=== PATIENT | female | born 1990 | race Caucasian/White ===

== ENCOUNTER 2020-10-25 09:06 | Outpatient (REF) | payer OTHER, SELFPAY ==
[2020-10-25 09:43] LABS: COVID-19 Test Negative (Negative)
== END 2020-10-25 09:07 | disposition home or self-care (01) ==
LOC: HO.EMPCOV 09:06
PROVIDERS: Visit Provider Internal Medicine
DX: Z20.828 Contact with and (suspected) exposure to other viral communicable diseases (principal)
CPT/HCPCS: 87635; C9803

== ENCOUNTER 2020-11-23 12:17 | Outpatient (REF) | payer OTHER, SELFPAY ==
[2020-11-27 08:54] LABS: SARS-COV-2 PCR UMBRL NEGATIVE
== END 2020-11-23 12:18 | disposition home or self-care (01) ==
LOC: HO.LAB 12:17
PROVIDERS: Visit Provider Internal Medicine
DX: Z20.822 Contact with and (suspected) exposure to COVID-19 (principal)
CPT/HCPCS: C9803; U0003

== ENCOUNTER 2021-01-07 08:32 | Outpatient (REF) | payer OTHER, SELFPAY ==
[2021-01-07 08:52] LABS: COVID-19 Test Negative (Negative)
== END 2021-01-07 08:33 | disposition home or self-care (01) ==
LOC: HO.LAB 08:32
PROVIDERS: Visit Provider Internal Medicine
DX: Z20.822 Contact with and (suspected) exposure to COVID-19 (principal)
CPT/HCPCS: 36415; 87635; C9803

== ENCOUNTER 2021-10-01 10:10 | Outpatient (REF) | payer OTHER, SELFPAY ==
[2021-10-01 10:39] LABS: Binax Internal Control QC Valid; Binax Lot number: 1911; Binax Now Covid-19 Ag Negative (Negative)
== END 2021-10-01 10:11 | disposition home or self-care (01) ==
LOC: HO.LAB 10:10
PROVIDERS: Physician Assistant Medical; Visit Provider Internal Medicine
DX: Z20.822 Contact with and (suspected) exposure to COVID-19 (principal)
CPT/HCPCS: 36415

== ENCOUNTER → 2022-08-14 13:17 | Outpatient (RCR) | payer OTHER, SELFPAY ==
[2020-11-11 10:00] LABS: SARS-COV-2 PCR UMBRL NEGATIVE
[2020-12-09 10:13] LABS: SARS-COV-2 PCR UMBRL NEGATIVE
[2020-12-23 12:02] LABS: SARS-COV-2 PCR UMBRL NEGATIVE
[2020-12-28 08:25] LABS: SARS-COV-2 PCR UMBRL NEGATIVE
[2021-01-11 09:02] LABS: SARS-COV-2 PCR UMBRL NEGATIVE
[2021-01-21 08:10] LABS: SARS-COV-2 PCR UMBRL NEGATIVE
[2021-02-11 12:00] LABS: COVID-19 Test Negative (Negative); IDNOW Serial# 55D5AD1C
[2021-03-04 09:10] LABS: COVID-19 Test Negative (Negative)
== END | disposition home or self-care (01) ==
LOC: HO.EMPCOV 11-08 13:22
PROVIDERS: Visit Provider Internal Medicine
DX: Z20.828 Contact with and (suspected) exposure to other viral communicable diseases (principal)
CPT/HCPCS: 36415; 87635; C9803; U0003; U0005

== ENCOUNTER 2023-11-15 10:17 | Emergency (ER) | payer OTHER, SELFPAY ==
--- NOTE | ~2023-11-15 | XR_ITS ---
EXAMINATION:XR ankle LT min 3V VIEWS ACQUIRED: Total of 5 views, frontal and oblique ankle, frontal oblique and lateral left foot. CLINICAL INFORMATION: Reason for Exam s/p fall COMPARISON: None available at the time of this dictation. FINDINGS: Comminuted displaced intra-articular fracture of the base of the proximal phalanx fifth toe, surrounding soft tissue swelling, fracture extend into the metatarsophalangeal joint. There are no other fractures.. Intertarsal, tarsometatarsal, metatarsophalangeal and interphalangeal joints are intact. Ankle mortise is preserved. Talar dome is intact. Medial and lateral malleoli are normal. XR/XR ankle LT min 3V IMPRESSION: 1. Comminuted displaced intra-articular fracture of the base of the proximal phalanx fifth toe. 2. Soft tissue swelling. 3. No other fractures.
--- NOTE | ~2023-11-15 | XR_ITS ---
EXAMINATION:X-ray ankle/foot left VIEWS ACQUIRED: Total of 5 views, frontal and oblique ankle, frontal oblique and lateral left foot. CLINICAL INFORMATION: Reason for Exam s/p fall COMPARISON: None available at the time of this dictation. FINDINGS: Comminuted displaced intra-articular fracture of the base of the proximal phalanx fifth toe, surrounding soft tissue swelling, fracture extend into the metatarsophalangeal joint. There are no other fractures.. Intertarsal, tarsometatarsal, metatarsophalangeal and interphalangeal joints are intact. Ankle mortise is preserved. Talar dome is intact. Medial and lateral malleoli are normal. XR/XR foot LT min 3V IMPRESSION: 1. Comminuted displaced intra-articular fracture of the base of the proximal phalanx fifth toe. 2. Soft tissue swelling. 3. No other fractures.
[2023-11-15 10:23] VITALS: BP 142/79; PULSE 111; RESP 16; TEMP 36.5; O2SAT 97; BMI 31.3
--- NOTE | 2023-11-15 10:28 | ED.LOWEXIN ---
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 Reports slipping down the stairs when her left 4th and 5th toe became stuck on the stairs, going different ways . Unable to bear weight on the left foot or ambulate after fall secondary to pain. Reports taking 1000 mg Tylenol PASTER OPERATOR. Denies numbness/tingling/weakness of the LLE. Denies ankle or foot pain. Denies head strike or LOC. Not on AC. Related Data Previous Rx's Medication Instructions Recorded naproxen 500 mg tablet 500 mg PO Q8-12H PRN pain (scale 11/15/23 score 4-6) #20 tabs Allergies Allergy/AdvReac Type Severity Reaction Status Date / Time No Known Allergies Allergy Unverified 07/12/20 18:07 Review of Systems Review of Systems: Constitutional: No fever, chills, fatigue, night sweats, weight changes ENT/Mouth: No ear pain, hearing loss, nasal congestion, sinus pain, rhinorrhea, sore throat Eyes: No eye pain, swelling, redness, vision changes, discharge Cardio: No chest pain, palpitations, MEDINA, orthopnea, peripheral edema Pulm: No SOB, cough, sputum, wheezing, dyspnea, hemoptysis GI: No nausea, vomiting, hematemesis, abdominal pain, diarrhea, constipation, hematochezia, melena : No irregular bleeding, dysuria, frequency, urgency, hesitancy, hematuria, flank pain, urinary flow changes, urinary incontinence or retention MSK: No back pain, neck pain, joint pain, myalgias, +left 4th and 5th toe pain Skin: No lesions, rashes Neuro: No weakness, numbness, paresthesias, LOC, dizziness, headache All other systems reviewed and are negative. [facility] Past Medical History Attestation statement: The following information was validated with the patient. Source: old records reviewed and nursing notes reviewed Onset Date is defined in the Problem List Problems that require an onset date and time if occurred within 24 hrs of arrival to the ED Aortic Dissection and Rupture; Neurologic impairment; Cardiopulmonary Arrest; Endotracheal Intubation; Insertion or Replacement of Mechanical Circulatory Assist Device Social History Social History Advance Directives: No Advance Directives Information Provided: No Physical Exam Vital Signs: Vital Signs: Last Vital Signs Temp 97.7 F 11/15/23 10:23 Pulse 111 H 11/15/23 10:23 Resp 16 11/15/23 10:23 BP 142/79 H 11/15/23 10:23 Pulse Ox 97 11/15/23 10:23 O2 Del Method Room Air 11/15/23 10:23 BMI result Body Mass Index 31.3 Const: General: cooperative, healthy appearing, comfortable and no acute distress Orientation/consciousness: patient oriented x3 Limitations: no limitations HEENT: Head: Yes normal to inspection, Yes No palpable skull fracture present, Yes normocephalic and Yes atraumatic Eyes: General: appearance normal, both eyes and all related structures Conjunctivae: conjunctivae normal Sclerae: sclerae normal Pupils: Equal, round and reactive pupils present Neck: Neck: Yes normal visual inspection and Yes full ROM Resp: Effort & Inspection: normal respiratory effort and symmetric chest movement Auscultation: clear to auscultation bilaterally Cardio: Rate: regular rate Rhythm: regular rhythm Back/Spine/Pelvis: Other: No midline spinous tenderness. No paraspinal muscle tenderness. No step off deformity. Neuro: Other: Strength 5/5 intact throughout.? No saddle anesthesia.?Sensation intact to light touch.?Neurovascular intact distally.? General: patient oriented x3 and Unable to assess gait Cranial nerves: Yes Equal, round and reactive pupils present Gait exam (Neuro): Unable to assess gait Extrem: Other: + ecchymosis noted to the lateral aspect of the left foot with edema noted to the base of the 4th and 5th DIPs. No obvious deformity. No tenting. No open wound. Limited ROM to 4th and 5th DIP and PIP secondary to pain. No ttp of the lateral or medial malleloli. full rom to left ankle. Unable to examine gait. Presents in wheelchair. 2+ dp/pt pulses. Course Course Course Narrative: 1220-- Xrays of left foot/ankle show a comminuted displaced intra-articular fracture of the base of the proximal phalanx of the fifth toe along with soft tissue swelling. No other acute fractures or dislocations. On my review of the films, I do not feel as though this can be reduced in ED as it likely will not stay reduced. Will provide patient with post-op shoe and crutches and follow up with ortho this week. Patient has remained stable throughout ED visit today. Discussed strict return precautions. All questions answered at this time. Patient is agreeable with disposition and stable for discharge. 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 Patient initially hypertensive and tachycardic likely secondary to pain. Vitals otherwise wnl. Patient is nontoxic appearing and in NAD. On physical exam, there is ecchymosis noted to the lateral aspect of the left foot with edema noted to the base of the 4th and 5th DIPs. No obvious deformity. No tenting. No open wound. Limited ROM to 4th and 5th DIP and PIP secondary to pain. No ttp of the lateral or medial malleloli. Unable to examine gait. Presents in wheelchair. 2+ dp/pt pulses. Clinical concern for fracture, dislocation. Unlikely neurovascular compromise, compartment syndrome, open fracture, osteo. Plan for xrays and re-evaluation. Differential Diagnosis Differential Diagnoses: The differential diagnosis associated with the presentation includes as above. Admission/Observation Not indicated. Independent Interpretation I performed an independent interpretation of an: Plain X-Ray Interpretation: I have personally reviewed x-ray of left foot/ankle and agree with radiologist's interpretation. Radiology Impression Discussion of test interpretation with radiology: I have reviewed the radiologist's reading. Radiologist Impression: XR sarabjit/anklet LT min 3V IMPRESSION: 1. Comminuted displaced intra-articular fracture of the base of the proximal phalanx fifth toe. 2. Soft tissue swelling. 3. No other fractures. Independent Historian Clinical information obtained from an independent historian. History obtained from or confirmed by: Spouse () Prescription Management I considered prescription management with: Pain Medication Social Determinants Patient?s care significantly limited by Social Determinants of Health including: Other Social Determinant of Health Procedures Orthopedic Splinting/Casting Injury #1: Side: left Lower Extremity Injury Location: foot and toe Lower Extremity Immobilizer: post-op shoe Other Orthopedic Equipment: crutches Discharge Plan Discharge Clinical Impression: Closed fracture of phalanx of fifth toe Patient Disposition: Home, Self-Care Instructions: Crutch Instructions (ED), Toe Fracture (ED), Foot Fracture in Adults (ED), Post Surgical Shoe (ED) Additional Instructions: The xrays of your left foot show a comminuted and displaced fracture of your left fifth toe. You were provided with a post-op shoe today to help with stabilization of the toe. You were also provided with crutches as you are not to bear any weight on the left foot. You have been provided with referral to ortho surgery. YOU NEED TO CALL THEM TO MAKE AN APPOINTMENT. THEY WILL NOT CALL YOU. This may require surgical correction. Naproxen is in anti-inflammatory that has been sent to your pharmacy. Take this as needed for pain/ swelling. Ice the toe for 20 minutes at a time to help swelling. Rest the left foot and elevate to help with swelling. If symptoms persist or worse or you develop numbness/tingling to the left foot, return to the ED. In the case of emergency, call 911. Prescriptions: New naproxen 500 mg tablet 500 mg PO Q8-12H PRN (Reason: pain (scale score 4-6)) Qty: 20 0RF [place] [facility] [place]Provider Group] - 3 days (Comminuted displaced intra-articular fracture of the base of the proximal phalanx fifth toe.) Stand Alone Forms: Work/School Release
== END 2023-11-15 12:59 | disposition home or self-care (01) ==
PROVIDERS: Emergency Provider Emergency Medicine; PCP Pediatrics
DX: S92.512A Displaced fracture of proximal phalanx of left lesser toe(s), initial encounter for closed fracture (principal); M25.572 Pain in left ankle and joints of left foot; R00.0 Tachycardia, unspecified; M79.672 Pain in left foot; W10.9XXA Fall (on) (from) unspecified stairs and steps, initial encounter; Y93.9 Activity, unspecified; Y92.9 Unspecified place or not applicable; Y99.8 Other external cause status
CPT/HCPCS: 29515; 73610; 73630; 99281; 99283

== ENCOUNTER 2023-11-16 15:31 | Outpatient (AMB) | payer OTHER, SELFPAY ==
--- NOTE | 2023-11-16 15:32 | A.OFFVIS_ITS ---
Intake Vital Signs 11/16/23 15:33 Height 5 ft 8 in Weight 206 lb BMI 31.3 Intake Visit Reasons: FC-Closed fracture of phalanx of left fifth toe Intake Note: Marly perez 33 year old female presents today for an ER follow up of left 5th metatarsal fx, DOI 11/15/23. Patient reports that she fell down the stairs, she presented to [facility] ED where xrays were taken and placed in a post op shoe. Currently her pain level is 4 out of 10. States pain is worse with weight bear. Denies numbness or tingling. Allergies No Known Allergies Allergy (Unverified 11/16/23 15:34) Medication List - Last Reconciled 11/16/23 by Kenroy Lowery PA-C naproxen 500 mg PO BID 30 days HPI FC-Closed fracture of phalanx of left fifth toe HPI Details 33-year-old female who presents to the [facility] today for an ER follow-up of left 5th toe injury s/p fall down the stairs, 11/15/23. She was seen at ED where x-rays were performed and she was placed in a post-op shoe. She currently states she has pain in her small toe which is aggravated with weight bearing. She rates the pain as 4 on the scale of 0-10. She denies any numbness or tingling. [facility] Social History (Updated 11/16/23 @ 15:36 by FINA Richards) Patient Tobacco Use Status: Never used Tobacco Current occupational status: employed Current occupation: [employer] [place] Review of Systems Const All systems reviewed & are unremarkable except as noted in HPI and below Physical Exam Vital Signs: BMI result Body Mass Index 31.3 Extrem Other: Left foot: Skin intact. There is some bruising of the lateral edge of the left foot. There is tenderness distal end of the small toe. Sensation intact. EHL intact. No pain along the mediolateral malleolus. Neurovascularly intact. Office Procedures Fracture Care Fracture Billing Code: Fracture Billing Code Results Reviewed Results Reviewed: xrays of the left foot obtained in the ED on 11/15/23 show non displaced fracture through the base of the proximal phalanx Assessment & Plan Assessment & Plan (1) Closed fracture of phalanx of fifth toe: Code(s): S92.503A - Displaced unspecified fracture of unspecified lesser toe(s), initial encounter for closed fracture Plan She was fit for a short boot weight bearing as tolerated. She will wear this with ambulation and can remove the boot for rest, hygiene, elevation, and icing. A prescription of naproxen was also sent to her pharmacy to take for the next 2 weeks for her swelling. I encouraged her to try transitioning to a regular street shoe when her swelling is resolved and increase activity as tolerated. If she has any discomfort, I would like to see her back in 4 weeks with new x-rays, sooner if needed. Medications: New naproxen 500 mg PO BID 30 days 60 tabs 3RF S93.409A - Sprain of unspecified ligament of unspecified ankle, initial encounter Patient Instructions: Scribed for Kenroy Lowery PA-C, by Vinicius Gallegos medical records field technician, on 11/16/2023 at 3:30 PM EST. I, Kenroy Lowery PA-C, have personally reviewed and agree with the information entered by the scribe. Coding Level of Care Code New Pt Level 3 (64263) Diagnoses Closed fracture of phalanx of fifth toe S92.503A CPT Codes Fracture Care - Fracture Billing Code: Fracture Billing Code ([id number])
[2023-11-16 15:33] VITALS: BMI 31.3
== END 2023-11-16 19:03 | disposition home or self-care (01) ==
PROVIDERS: PCP Pediatrics; Visit Provider Physician Assistant
DX: S92.355A Nondisplaced fracture of fifth metatarsal bone, left foot, initial encounter for closed fracture (principal); W10.8XXA Fall (on) (from) other stairs and steps, initial encounter
CPT/HCPCS: 99203

== ENCOUNTER → 2023-11-16 15:31 | Outpatient (BNVA) | payer OTHER, SELFPAY | PROVIDERS: PCP Pediatrics; Visit Provider Physician Assistant ==

== ENCOUNTER 2023-12-07 09:36 | Outpatient (REF) | payer OTHER, SELFPAY ==
--- NOTE | ~2023-12-07 | XR_ITS ---
EXAMINATION: XR FOOT, LEFT CLINICAL INFORMATION: Pain in left foot. COMPARISON: 11/15/2023 TECHNIQUE: AP, lateral, and oblique views of the left foot. FINDINGS: Redemonstration of a comminuted, displaced intra-articular fracture at the base of the proximal phalanx of the fifth toe. Fracture extends into the metatarsophalangeal joint. Adjacent soft tissue swelling. XR/XR foot LT min 3V IMPRESSION: Redemonstration of a comminuted, displaced intra-articular fracture at the base of the proximal phalanx of the fifth toe.
== END 2023-12-07 09:37 | disposition home or self-care (01) ==
LOC: HO.HOSX 09:36
PROVIDERS: Visit Provider Physician Assistant
DX: S92.502D Displaced unspecified fracture of left lesser toe(s), subsequent encounter for fracture with routine healing (principal)
CPT/HCPCS: 73630

== ENCOUNTER 2023-12-07 10:06 | Outpatient (AMB) | payer OTHER, SELFPAY ==
--- NOTE | 2023-12-07 10:12 | A.OFFVIS_ITS ---
Intake Vital Signs 12/07/23 10:14 Height 5 ft 8 in Weight 206 lb BMI 31.3 Intake Visit Reasons: ov-left foot fx w xrays Intake Note: Marly a 33 year old female presents today for a follow up of left 5th metatarsal fx, DOI 11/15/23. Patient reports that she discontinued walking boot on Thursday. States having some discomfort with shoe wear. Allergies No Known Allergies Allergy (Unverified 12/07/23 10:17) Medication List - Last Reconciled 12/07/23 by Kenroy Lowery PA-C naproxen 500 mg PO BID 30 days PFS Social History Patient Tobacco Use Status: Never used Tobacco Current occupational status: employed Current [place] [employer] [place] Review of Systems Const All systems reviewed & are unremarkable except as noted in HPI and below Physical Exam Vital Signs: BMI result Body Mass Index 31.3 Extrem Other: Left foot: Skin intact. No brusiing or swelling. There is tenderness distal end of the small toe. Sensation intact. EHL intact. No pain along the mediolateral malleolus. Neurovascularly intact. Results Reviewed Results Reviewed: X-rays of the left foot obtained in the office today show stable fracture pattern through the left small toe Assessment & Plan Assessment & Plan (1) Closed fracture of phalanx of fifth toe: Code(s): S92.503A - Displaced unspecified fracture of unspecified lesser toe(s), initial encounter for closed fracture Plan: She will continue with regular street shoe as tolerated. I did explain that a shoe with a stiff sole will be more comfortable and over the next 6 weeks she should notice some improvement in her symptoms mom she should avoid any type of running or impact activities anything where she is pushing off with the left foot for another 4-6 weeks and if symptoms persist or worsen over time she will contact our office otherwise follow up as needed. Orders: Orders XR foot LT min 3V Today M79.672 - Pain in left foot Coding Level of Care Code Global (45918) Diagnoses Closed fracture of phalanx of fifth toe S92.503A
[2023-12-07 10:14] VITALS: BMI 31.3
== END 2023-12-07 10:27 | disposition home or self-care (01) ==
PROVIDERS: PCP Pediatrics; Visit Provider Physician Assistant
DX: S92.502A Displaced unspecified fracture of left lesser toe(s), initial encounter for closed fracture (principal)
CPT/HCPCS: 99213

== ENCOUNTER 2024-01-19 10:00 | Outpatient (AMB) | payer OTHER, SELFPAY ==
[2024-01-19 10:07] VITALS: BP 102/60; PULSE 70; RESP 13; O2SAT 98; BMI 33.1
--- NOTE | 2024-01-19 10:07 | AM.OFFWIN_ITS ---
Intake Vital Signs 3 01/19/24 10:07 Height 5 ft 8 in Weight 217 lb 8 oz BMI 33.1 BP 102/60 Blood Pressure Location Rt brachial Position Sitting Respiration 13 Pulse 70 Pulse Source Pulse Oximeter Pulse Oximetry (%) 98 Oxygen Delivery Method Room Air Intake Visit Reasons: Lump under right arm Intake Note: Patient is here for a lump noticed on right side under arm x2 weeks. Patient reports she went to oncology to ask about this and they advised her to come to walk in for further eval. 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 Remained same size since onset. and left side of scalp swollen as well. Also painless. denies significant medical hx other than anemia denies recent mono or strep. denies breast complaints. No rashes. No trauma. [facility] Social History Patient Tobacco Use Status: Never used Tobacco Current occupational status: employed Current occupation: [employer] [place] Review of Systems Const All systems reviewed & are unremarkable except as noted in HPI and below Physical Exam Vital Signs: Last Vital Signs Pulse 70 01/19/24 10:07 Resp 13 01/19/24 10:07 BP 102/60 01/19/24 10:07 Pulse Ox 98 01/19/24 10:07 Oxygen Delivery Method Room Air 01/19/24 10:07 BMI result Body Mass Index 33.1 Const Other: Awake alert no acute distress HEENT Head images: 2 1. shotty mobile painless hardly palpable lymph node Chest Chest/axillae images: 2 1. palp induration, no fluctuance pain or redness. no appreciable adenopathy in arm or axilla Assessment & Plan Assessment & Plan (1) Sebaceous cyst of right axilla: Comment: CHECK ULTRASOUND FOR REASSURANCE. Most likely a cyst. If this is the case advised to apply warm moist compresses followed by gentle massage of the area, avoid shaving. We will follow up with her next week to review the results Code(s): L72.3 - Sebaceous cyst Plan: . (2) Laboratory examination ordered as part of a routine general medical examination: Code(s): Z00.00 - Encounter for general adult medical examination without abnormal findings Plan: This note is constructed using voice recognition software. While every effort has been made to ensure accuracy in head silverman, still errors may have been included Sometimes, these errors may affect the content or meaning of the given sentence . Total time spent caring for the patient today was 30 minutes. This includes time spent before the visit reviewing the chart, time spent during the visit, and time spent after the visit on documentation Orders: Orders 2 Lipid Panel Today Z00.00 - Encounter for general adult medical examination without abnormal findings TSH reflex Free T4 Today Z00.00 - Encounter for general adult medical examination without abnormal findings Complete Blood Count no Diff Today Z00.00 - Encounter for general adult medical examination without abnormal findings US soft tiss head and/or neck Today L72.3 - Sebaceous cyst Microalbumin, Random (w Creat) Today Z00.00 - Encounter for general adult medical examination without abnormal findings Vitamin D 1,25 dihydroxy Today Z00.00 - Encounter for general adult medical examination without abnormal findings Comprehensive Langdon. Panel Fast Today Z00.00 - Encounter for general adult medical examination without abnormal findings Hemoglobin A1c Today Z00.00 - Encounter for general adult medical examination without abnormal findings IRON PROFILE Today Z00.00 - Encounter for general adult medical examination without abnormal findings Vitamin B12 and Folate Today Z00.00 - Encounter for general adult medical examination without abnormal findings Coding Level of Care Code Est Pt Level 4 (02249) Diagnoses Sebaceous cyst of right axilla L72.3 Laboratory examination ordered as part of a routine general medical examination Z00.00
== END 2024-01-19 11:59 | disposition home or self-care (01) ==
PROVIDERS: PCP Nurse Practitioner Family; Visit Provider Nurse Practitioner Family
DX: L72.3 Sebaceous cyst (principal); Z00.00 Encounter for general adult medical examination without abnormal findings
CPT/HCPCS: 99214

== ENCOUNTER 2024-01-20 07:39 | Outpatient (REF) | payer OTHER, SELFPAY ==
[2024-01-20 08:32] LABS: Hematocrit 39.4 % (37.0-47.0); Hemoglobin 12.6 g/dl (12.0-16.0); Mean Corpuscular Hemoglobin 28.5 pg (27.0-33.0); Mean Corpuscular Volume 89.1 fL (80.0-98.0); Platelet Count 267 X10*3/uL (160-400); Red Blood Count 4.42 X10*6/uL (4.20-5.50); Red Cell Distribution Width 13.2 % (11.0-16.0); White Blood Count 5.4 X10*3/uL (4.8-10.8)
[2024-01-20 08:33] LABS: Estimated Average Glucose 114 mg/dL; Hemoglobin A1c % 5.6 % (<6.0)
[2024-01-20 08:56] LABS: Alanine Aminotransferase 18 U/L (0-31); Albumin Level 4.3 g/dL (3.5-5.0); Alkaline Phosphatase 66 U/L (39-117); Anion Gap 12 (12-20); Aspartate Amino Transferase 14 U/L (5-31); Bilirubin Total 0.3 mg/dL (0.0-1.0); Blood Urea Nitrogen 10 mg/dL (9-16); Calcium 9.8 mg/dL (8.4-10.2); Carbon Dioxide 26 mmol/L (22-29); Chloride 108 mmol/L (96-108); Cholesterol 148 mg/dL (<200); Estimated Glomerular Filt Rate > 60; Glucose Fasting 132 mg/dL (60-99); HDL Cholesterol 41 mg/dL (>40); Iron 70 mcg/dL (30-160); LDL Cholesterol Calculated 93 mg/dL (<100); Percent Iron Saturation 20 % (15-50); Potassium 3.9 mmol/L (3.3-5.1); Sodium 142 mmol/L (135-145); Total Iron Binding Capacity 350 mcg/dL (228-428); Total Protein 7.1 g/dL (6.5-8.0); Triglycerides 73 mg/dL (<150); Unsaturated Iron Binding 280 ug/dL
[2024-01-20 09:08] LABS: Microalbum/Creatinine Ratio Ur 5.7 ug/mg cr (<30)
[2024-01-20 09:14] LABS: TSH reflex Free T4 1.24 uIU/mL (0.32-4.0)
[2024-01-20 09:23] LABS: Folate 8.6 ng/mL (> or = 4.0); Vitamin B12 373 pg/mL (200-900)
[2024-01-24 15:47] LABS: VITAMIN D (1,25 OH) D3 16 pg/mL; Vit D (1,25-Dihydroxy) Total 16 pg/mL (18-72); Vitamin D (1,25 OH) D2 <8 pg/mL
== END 2024-01-20 07:40 | disposition home or self-care (01) ==
LOC: HO.LAB 07:39
PROVIDERS: PCP Nurse Practitioner Family; Visit Provider Nurse Practitioner Family
DX: Z00.00 Encounter for general adult medical examination without abnormal findings (principal); Z13.6 Encounter for screening for cardiovascular disorders
CPT/HCPCS: 36415; 80053; 80061; 82043; 82570; 82607; 82652; 82746; 83036; 83540; 84443; 85027

== ENCOUNTER 2024-01-21 15:58 | Outpatient (REF) | payer OTHER, SELFPAY ==
--- NOTE | ~2024-01-21 | US_ITS ---
STUDY: Right axillary ultrasound. INDICATION: Sebaceous cyst/palpable abnormality right axilla. TECHNIQUE: Real-time ultrasound was used to scan the right axilla. Permanent documented images obtained and cine loops provided. COMPARISON: None FINDINGS: In the region of interest, is subcutaneous tissues of the right axilla, 0.5 x 0.3 x 0.4 cm avascular solid appearing structure is seen. No tract to skin identified. The borders are not well-defined. No typical internal architecture to suggest normal lymph node. No cystic or fluid components. US/US extremity nonvascular ortiz IMPRESSION: 5 mm right axillary subcutaneous structure corresponding to palpable abnormality is indeterminate.
== END 2024-01-21 15:59 | disposition home or self-care (01) ==
LOC: HO.US 15:58
PROVIDERS: PCP Nurse Practitioner Family; Visit Provider Nurse Practitioner Family
DX: L72.3 Sebaceous cyst (principal)
CPT/HCPCS: 76882

== ENCOUNTER 2024-01-28 07:52 | Outpatient (AMB) | payer OTHER, SELFPAY ==
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
[2024-01-28 08:06] VITALS: BP 118/65; PULSE 80; RESP 13; TEMP 36.5; O2SAT 98; BMI 32.9
== END 2024-01-28 09:00 | disposition home or self-care (01) ==
PROVIDERS: PCP Pediatrics; Visit Provider Nurse Practitioner Family
DX: Z00.00 Encounter for general adult medical examination without abnormal findings (principal); E55.9 Vitamin D deficiency, unspecified; N63.31 Unspecified lump in axillary tail of the right breast; N63.21 Unspecified lump in the left breast, upper outer quadrant
CPT/HCPCS: 1124F; 99395

== ENCOUNTER 2024-02-01 09:45 | Outpatient (REF) | payer OTHER, SELFPAY ==
--- NOTE | ~2024-02-01 | US_ITS ---
EXAMINATION: MM DIAGNOSTIC DIGITAL BREAST TOMOSYNTHESIS, BILATERAL US BREAST LIMITED, BILATERAL MAMMOGRAPHY: CLINICAL INFORMATION: 33-year-old female complaining of right axillary palpable focus, left axillary palpable focus, and palpable focus left breast at 3:00 approximately. Patient's doctor felt palpable focus superior left breast, of which the patient does not feel nor can localize. COMPARISON: Mammography: No prior. Baseline exam. TECHNIQUE: Digital breast tomosynthesis is performed in both the craniocaudal and mediolateral oblique views along with computer-aided detection (CAD). Synthesized 2D images are generated from the tomosynthesis. In addition to routine views, full-field 3-D bilateral mediolateral views were performed. FINDINGS: The breasts are heterogeneously dense, which may obscure small masses (ACR BI-RADS breast composition Category c). Areas of palpable concern left breast have been marked by the technologist. The right axillary focus of palpable concern is too high to be seen on the right MLO or ML view. There are no suspicious masses, suspicious grouped calcifications, or areas of architectural distortion in either breast. There are no correlates mammographically to the foci of palpable concern in both breasts. ULTRASOUND: CLINICAL INFORMATION: 33-year-old female complaining of right axillary palpable focus, left axillary palpable focus, and palpable focus left breast at 3:00 approximately. Patient's doctor felt palpable focus superior left breast, of which the patient does not feel nor can localize. COMPARISON: None TECHNIQUE: Targeted sonographic evaluation was performed using a high frequency linear transducer. Right breast was imaged in the axilla, and the left breast was imaged in the lateral aspect and axilla, to include the palpable foci of concern. Selected archived documentation. FINDINGS: RIGHT BREAST: There is heterogeneously dense fibroglandular tissue. No suspicious mass is seen. There is no pathologic acoustic shadowing. There are no cystic abnormalities. There is no axillary adenopathy. There may be a small intradermal lesion in the right axilla measuring 4 x 3 mm. This would likely represent a sebaceous cyst or other intradermal lesion could correlate with the palpable focus. Otherwise, no additional correlation seen. LEFT BREAST: There is heterogeneously dense fibroglandular tissue. No suspicious mass is seen. There is no pathologic acoustic shadowing. There is no axillary adenopathy. There are no cystic abnormalities. There are no regions of correlation in the left breast to the palpable foci of concern. US/US breast BI limited mamm only IMPRESSION: -There are no findings suspicious for malignancy in either breast. -There are no mammographic or sonographic correlates to the left breast palpable foci of concern. There is no mammographic correlate to the right axillary palpable focus. Recommend clinical management. -There is a small intradermal lesion measuring 3 x 4 mm in the right mid axilla, possibly a sebaceous cyst or other entirely nonspecific intradermal abnormality, seen on sonography which may correlate with the right axillary palpable focus. This should be managed clinically. -Decision to biopsy a palpable abnormality without imaging correlation must be determined clinically. OVERALL ASSESSMENT: Mammography: BI-RADS 2 - Benign Findings Ultrasound: BI-RADS 2 - Benign Findings RECOMMENDATION: 1. Patient should be managed based on the clinical impression. Decision to proceed with biopsy should be based on clinical grounds and degree of clinical concern. 2. Otherwise, routine annual screening mammography at age 38. Results were provided to the patient at time of visit by the technologist. This patient's information was entered into a reminder system with a target due date for their next mammogram.
== END 2024-02-01 09:46 | disposition home or self-care (01) ==
LOC: HO.MAMMO 09:45
PROVIDERS: PCP Nurse Practitioner Family; Visit Provider Nurse Practitioner Family
DX: N63.31 Unspecified lump in axillary tail of the right breast (principal); N63.23 Unspecified lump in the left breast, lower outer quadrant
CPT/HCPCS: 76642; 77062; 77066

== ENCOUNTER → 2024-02-01 10:00 | Outpatient (BNV) | payer OTHER, SELFPAY | PROVIDERS: PCP Nurse Practitioner Family; Visit Provider Radiology Diagnostic Radiology | DX: N63.25 Unspecified lump in the left breast, overlapping quadrants (principal) | CPT/HCPCS: 76642; 77062; 77066 ==

== ENCOUNTER 2024-02-10 09:16 | Outpatient (AMB) | payer OTHER, SELFPAY ==
[2024-02-10 09:58] VITALS: BP 138/72; PULSE 72; BMI 32.9
--- NOTE | 2024-02-10 09:58 | A.OFFVIS_ITS ---
Intake Vital Signs 02/10/24 09:58 Height 5 ft 8 in Weight 216 lb 3.987 oz BMI 32.9 BP 138/72 Blood Pressure Location Rt brachial Position Sitting Pulse 72 Intake Visit Reasons: Bilateral breast lump Intake Note: This patient was referred by Bri Betancourt for Bilateral breast lump. Pt c/o; bilateral breast and axillary lumps, reports no discharge from nipples. 02/01/2024: MM Diag/ Breast US Financial Sales Professional Required: No Childbirth Educator: Childbirth Educator offered & declined Accompanied by: Self / Same As Patient Allergies No Known Allergies Allergy (Verified 02/10/24 10:07) Medication List - Last Reconciled 02/10/24 by Rickey Dennison MD cholecalciferol (vitamin D3) 50 mcg PO DAILY Is last menstrual period known: Yes Last menstrual period: 01/16/24 HPI Bilateral breast lump HPI Details [age] year old female referred for an axillary lump. She says that she noticed a lump on the right axilla about a month ago. She also says that she may have notice a small lump as well on the left axilla as well as the left breast. She was therefore sent for a mammogram and ultrasound by her primary care physician. There were no suspicious breast masses seen. There was note of what appears to be a skin cyst on the right side in the axilla. Her menarche was at age of 11. Her 1st was age of 21. She had 4 pregnancies. She still has her periods regularly. She denies any family history of breast cancer or ovarian cancer. [facility] Medical History (Updated 02/10/24 @ 10:23 by Rickey Dennison MD) Epidermal cyst GERD (gastroesophageal reflux disease) Surgical History History of surgery on wrist Family History Maternal Grandmother Asthma Maternal Grandfather Asthma Diabetes Prostate cancer Sister Asthma Father High cholesterol Cancer Paternal Grandfather Cancer Paternal Grandmother Non-Hodgkin lymphoma Paternal Uncle Pancreatic cancer Other Alcoholism Substance use disorder Social History Household Members: Spouse and Children Household Members Other:: Children x4 Housing: House 75 years or older and lives alone: No Alcohol intake: current Alcohol intake frequency: holidays/special occasions only Patient Tobacco Use Status: Never used Tobacco e-Cigarette/Vaping Use: Never Used service: No Current occupational status: employed Current occupation: [employer] [place] [place] Current occupational exposures/hazards: Yes Sexual orientation: Straight/Heterosexual Gender identity: Female Cognitive needs: No Hearing needs: No Vision needs: No Female Reproductive History Menstrual Age of Menarche: 11 Date of last menstrual period: 01/16/24 Total pregnancies: 4 Full term: 4 Review of Systems Const Denies chills and Denies fever(s) Card Denies chest pain, Denies dyspnea and Denies dyspnea on exertion Resp Denies cough, Denies dyspnea and Denies dyspnea on exertion GI Denies hematochezia and Denies change in bowel habits Denies hematuria Musc Denies back pain and Denies limited range of motion Neuro Denies focal weakness and Denies convulsions Psych Denies depression and Denies mood swings Physical Exam Vital Signs: Last Vital Signs Pulse 72 02/10/24 09:58 BP 138/72 02/10/24 09:58 BMI result Body Mass Index 32.9 Const General: comfortable and no acute distress Orientation/consciousness: patient oriented x3 Neck Neck: Yes no lymphadenopathy Chest Other: No palpable breast masses, no nipple or skin changes, no axillary lymphadenopathy, there may be a small epidermal cyst on the right axilla, about 3 mm in size, and there were no palpable masses on the left breast or left ax illa Resp Auscultation: clear to auscultation bilaterally Cardio Rhythm: regular rhythm GI Palpation (GI): Soft to palpation, nontender and no guarding Neuro General: patient oriented x3 Assessment & Plan Assessment & Plan (1) Epidermal cyst: Code(s): L72.0 - Epidermal cyst Plan: She has what appears to be a small epidermal cyst on the right axilla. She says that this is not bothering her. This is small as well so I told her that it may not need to be excised until this becomes bothersome to her. I have reviewed her ultrasound and mammogram. There were no suspicious masses in the breast or the axilla I did remind her to try to have a mammogram every 1-2 years from here on I have instructed her to do breast self exam every month. She can follow-up with us on a p.r.n. basis if she has any concerns. Coding Level of Care Code New Pt Level 3 (80810) Diagnoses Epidermal cyst L72.0
== END 2024-02-10 10:22 | disposition home or self-care (01) ==
PROVIDERS: PCP Nurse Practitioner Family; Visit Provider Surgery
DX: L72.0 Epidermal cyst (principal)
CPT/HCPCS: 99203

== ENCOUNTER → 2024-02-10 09:16 | Outpatient (BNVA) | payer OTHER, SELFPAY | PROVIDERS: PCP Nurse Practitioner Family; Visit Provider Surgery ==

== ENCOUNTER 2024-05-19 07:41 | Outpatient (AMB) | payer OTHER, SELFPAY ==
--- NOTE | 2024-05-19 07:52 | A.OFFPC_ITS ---
Vital Signs 3 05/19/24 08:11 Height 5 ft 8 in Weight 216 lb BMI 32.8 BP 120/68 Blood Pressure Location Rt brachial Position Sitting Pulse 94 Pulse Source Pulse Oximeter Pulse Oximetry (%) 98 Oxygen Delivery Method Room Air Intake Visit Reasons: Lump in throat Allergies No Known Allergies Allergy (Verified 05/19/24 08:14) Tobacco use date assessed: 01/28/24 Dental Screening Dental Screen Date: 01/28/24 HPI HPI Comments 2 History of Present Illness0 Details 33-year-old female with vitamin-D defici ency here today with a chief complaints of painless lump along side the right jaw and left anterior neck. Reports about 1 month ago she started with a as it like area. The area remains unchanged however now she is able to palpate a small lump underneath the area that looks like a pimple. There is no drainage. On Thursday while at work she rubbed her neck to move her hair and noted a lump on the right side of her jaw. While it has decreased in size since onset, it still remains. Upon review of systems she reports that she is losing hair in clumps. Reports that her gently tugged on her ponytail the other day and ended up with a handful of her hair. Otherwise she denies any fever, chills, ear pain, sore throat, dental pain, weight loss, trouble swallowing. Plan Check some labs and ultrasound imaging. We will follow up with patient once the labs and ultrasound are resulted. Sooner if something changes. This note is constructed using voice recognition software. While every effort has been made to ensure accuracy in cone chocolate dipper, still errors may have been included Sometimes, these errors may affect the content or meaning of the given sentence . Total time spent caring for the patient today was 30 minutes. This includes time spent before the visit reviewing the chart, time spent during the visit, and time spent after the visit on documentation [facility] Medical History Epidermal cyst GERD (gastroesophageal reflux disease) Surgical History History of surgery on wrist Family History Maternal Grandmother Asthma Maternal Grandfather Asthma Diabetes Prostate cancer Sister Asthma Father High cholesterol Cancer Paternal Grandfather Cancer Paternal Grandmother Non-Hodgkin lymphoma Paternal Uncle Pancreatic cancer Other Alcoholism Substance use disorder Social History Household Members: Spouse and Children Household Members Other:: Children x4 Housing: House 75 years or older and lives alone: No Alcohol intake: current Alcohol intake frequency: holidays/special occasions only Patient Tobacco Use Status: Never used Tobacco e-Cigarette/Vaping Use: Never Used service: No Current occupational status: employed Current occupation: [employer] – [place] Current occupational exposures/hazards: Yes Sexual orientation: Straight/Heterosexual Gender identity: Female Cognitive needs: No Hearing needs: No Vision needs: No Female Reproductive History Menstrual Age of Menarche: 11 Questionnaire Thrive Questionnaire Date Thrive assessed: 01/28/24 LOLA-7 AMB Questionnaire LOLA-7 Date LOLA - 7 assessed: 01/28/24 Source: Developed by Drs. Morris Caballero, Luci Millan, Erlin Lanier and colleagues, with an educational deonte from [employer]. Physical exam (Primary Care) Tobacco/Smoking Status: Tobacco use Status Tobacco use date assessed 01/28/24 05/19/24 07:52 Patient Tobacco Use Status Never used Tobacco 05/19/24 07:52 e-Cigarette/Vaping Use Never Used 05/19/24 07:52 Thrive Assessment: Date of Thrive Assessment Date Thrive assessed 01/28/24 05/19/24 07:52 HENMT Other: Awake alert oriented no acute distress Conjunctiva clear bilat TM intact and clear bilat Pharynx with very faint erythema without exudate, uvula midline, managing secretions Head images: 2 1. Asymmetry along the right jaw line when compared to the left jaw line, there is no palpable lump or firmness, the overlying skin is intact. There is no pain along the jaw line 2. Small pink pimple like area, underneath this is a very small palpable semi firm lump with smooth edges, mobile, painless Assessment and Plan Assessment & Plan (1) Lymphadenopathy of head and neck region: Code(s): R59.0 - Localized enlarged lymph nodes (2) Vitamin D deficiency: Comment: 01/2024 start Vitamin d3 2000IU QD. Recheck labs in 6 months. Code(s): E55.9 - Vitamin D deficiency, unspecified (3) Hair loss: Code(s): L65.9 - Nonscarring hair loss, unspecified Orders: Orders 2 Parathyroid Hormone Intact Today E55.9 - Vitamin D deficiency, unspecified, L65.9 - Nonscarring hair loss, unspecified, R59.0 - Localized enlarged lymph nodes Calcium, Ionized Today E55.9 - Vitamin D deficiency, unspecified, L65.9 - Nonscarring hair loss, unspecified, R59.0 - Localized enlarged lymph nodes Ferritin Today E55.9 - Vitamin D deficiency, unspecified, L65.9 - Nonscarring hair loss, unspecified, R59.0 - Localized enlarged lymph nodes ANGELA Reflex Titer and Pattern Today E55.9 - Vitamin D deficiency, unspecified, L65.9 - Nonscarring hair loss, unspecified, R59.0 - Localized enlarged lymph nodes US soft tiss head and/or neck Today R59.0 - Localized enlarged lymph nodes Magnesium Today E55.9 - Vitamin D deficiency, unspecified, L65.9 - Nonscarring hair loss, unspecified, R59.0 - Localized enlarged lymph nodes Phosphorus Today E55.9 - Vitamin D deficiency, unspecified, L65.9 - Nonscarring hair loss, unspecified, R59.0 - Localized enlarged lymph nodes Vitamin D 1,25 dihydroxy Today E55.9 - Vitamin D deficiency, unspecified, L65.9 - Nonscarring hair loss, unspecified, R59.0 - Localized enlarged lymph nodes Albumin Level Today E55.9 - Vitamin D deficiency, unspecified, L65.9 - Nonscarring hair loss, unspecified, R59.0 - Localized enlarged lymph nodes Coding Level of Care Code Est Pt Level 4 (09605) Diagnoses Lymphadenopathy of head and neck region R59.0 Vitamin D deficiency E55.9 Hair loss L65.9
[2024-05-19 08:11] VITALS: BP 120/68; PULSE 94; O2SAT 98; BMI 32.8
== END 2024-05-19 14:02 | disposition home or self-care (01) ==
PROVIDERS: PCP Nurse Practitioner Family; Visit Provider Nurse Practitioner Family
DX: R59.0 Localized enlarged lymph nodes (principal); E55.9 Vitamin D deficiency, unspecified; L65.9 Nonscarring hair loss, unspecified
CPT/HCPCS: 99214

== ENCOUNTER 2024-05-19 11:04 | Outpatient (REF) | payer OTHER, SELFPAY ==
--- NOTE | ~2024-05-19 | US_ITS ---
EXAMINATION: US SOFT TISSUE NECK CLINICAL INFORMATION: Localized enlarged lymph nodes. Concern along right jaw line and left anterior neck. COMPARISON: None available. TECHNIQUE: Ultrasound of the neck soft tissues is performed with high- frequency cleary-scale imaging and color Doppler. FINDINGS: The examined tissues of the neck are normal. No soft tissue mass or fluid collection. The right and left submandibular glands have normal echotexture. There are lymph nodes in the submandibular regions that have normal architecture. These lymph nodes have normal fatty rogelio, normal cortical thickness and are without cystic change or calcification. The largest right and left submandibular region lymph nodes measure 0.5 cm and 0.6 cm short axis dimension, respectively. There are no hypervascular lymph nodes. US/US soft tiss head and/or neck IMPRESSION: Normal ultrasound examination. The visualized lymph nodes have normal size, morphology and echotexture.
[2024-05-19 11:47] LABS: Albumin Level 4.7 g/dL (3.5-5.0); Magnesium 2.2 mg/dL (1.6-2.6)
[2024-05-19 11:49] LABS: Parathyroid Hormone Intact 89.6 pg/mL (8.7-77.1)
[2024-05-19 12:02] LABS: Ferritin 16 ng/mL (10-122)
[2024-05-22 14:28] LABS: Calcium, Ionized 5.1 mg/dL (4.7-5.5)
[2024-05-25 17:18] LABS: VITAMIN D (1,25 OH) D3 35 pg/mL; Vit D (1,25-Dihydroxy) Total 35 pg/mL (18-72); Vitamin D (1,25 OH) D2 <8 pg/mL
[2024-05-26 13:09] LABS: Anti Nuclear Antibody Screen POSITIVE (NEGATIVE)
== END 2024-05-19 11:05 | disposition home or self-care (01) ==
LOC: HO.US 11:04
PROVIDERS: PCP Nurse Practitioner Family; Visit Provider Nurse Practitioner Family
DX: R59.0 Localized enlarged lymph nodes (principal); E55.9 Vitamin D deficiency, unspecified; L65.9 Nonscarring hair loss, unspecified
CPT/HCPCS: 36415; 76536; 82040; 82330; 82652; 82728; 83735; 83970; 84100; 86038; 86039

== ENCOUNTER 2024-05-23 08:48 | Outpatient (REF) | payer OTHER, SELFPAY ==
--- NOTE | ~2024-05-23 | US_ITS ---
Addendum provided as requested which is supplied in the area of bilateral thyroid. Targeted ultrasound images were obtained by the floor worker of the areas of concern as indicated by the patient in the expected locations of the bilateral parathyroid glands and demonstrated no discrete soft tissue mass to suggest parathyroid. Radiologist was not in attendance. Images were later provided for interpretation. Electronically signed by: Sherie Blevins MD 07/05/2024 12:55 PM CDT RP US/US thyroid IMPRESSION: Diffusely heterogeneous thyroid gland. 0.5 cm right TR 3 thyroid nodule and 0.2 cm left TR 1 nodule. ACR TI-RADS RECOMMENDATION REFERENCE: Ultrasound-guided fine-needle aspiration, followup ultrasound, no further follow up. * TR1 (0 point) and TR2 (2 points): No FNA or follow up. * TR3 (3 points): FNA if more than or equal to 2.5 cm in maximum dimension, followup ultrasound in 1, 3 and 5 years if 1.5 to 2.4 cm in maximum dimension. * TR4 (4-6 points): FNA if more than or equal to 1.5 cm in maximum dimension, followup ultrasound in 1, 2, 3 and 5 years if 1 to 1.4 cm in maximum dimension. * TR5 (more than or equal to 7 points): FNA if more than or equal to 1 cm in maximum dimension, followup ultrasound every year for 5 years if 0.5 to 0.9 cm in maximum dimension. * TR3, TR4 or TR5 nodules that are below the size threshold for followup receive no follow up.
== END 2024-05-23 08:49 | disposition home or self-care (01) ==
LOC: HO.US 08:48
PROVIDERS: PCP Nurse Practitioner Family; Visit Provider Nurse Practitioner Family
DX: R79.89 Other specified abnormal findings of blood chemistry (principal)
CPT/HCPCS: 76536

== ENCOUNTER 2024-05-25 13:04 | Outpatient (REF) | payer OTHER, SELFPAY ==
--- NOTE | ~2024-05-25 | XR_ITS ---
EXAMINATION: XR KNEE, RIGHT CLINICAL INFORMATION: Osteoarthritis of the right knee. COMPARISON: None available. TECHNIQUE: AP standing view of both knees, lateral and sunrise view of the right knee. FINDINGS: No acute fracture or dislocation. Mild joint space narrowing of the medial and patellofemoral compartments of the right knee. Mild joint space narrowing of the medial compartment of the left knee. No significant osteophytes. No osseous erosions. No unusual soft tissue calcifications. No joint effusion in the right knee. XR/XR knee RT 3V IMPRESSION: 1. No acute fracture or dislocation. 2. Mild degenerative osteoarthritis of the medial and patellofemoral compartments of the right knee. 3. Mild degenerative osteoarthritis of the medial compartment of the left knee in this limited single view evaluation of the left knee.
== END 2024-05-25 13:05 | disposition home or self-care (01) ==
LOC: HO.HOSX 13:04
PROVIDERS: Visit Provider Physician Assistant
DX: M17.11 Unilateral primary osteoarthritis, right knee (principal)
CPT/HCPCS: 73562

== ENCOUNTER 2024-05-25 13:22 | Outpatient (AMB) | payer OTHER, SELFPAY ==
--- NOTE | 2024-05-25 13:57 | MHC.OFFVIS ---
Vital Signs 05/25/24 14:03 Height 5 ft 8 in Weight 216 lb BMI 32.8 Intake Visit Reasons: New prob- RT knee pain Intake Note: Marly a 33 year old female who presents today for an evaluation of right knee pain. Patient reports her pain started as intermittent however recently her pain has became constant. Her pain is located mostly at the anterior aspect of knee however with bending her knee, she will have pain at the posterior aspect. Denies numbness or tingling. States as a child her feet grew inward and was placed in feet cast. She was told that she will most likely have knee problems. Finds no relief with Tylenol. Denies numbness or tingling. Allergies No Known Allergies Allergy (Verified 05/25/24 14:00) Medication List - Last Reconciled 05/25/24 by Kenroy Lowery PA-C cholecalciferol (vitamin D3) 50 mcg PO DAILY HPI HPI New prob- RT knee pain: Details: Marly is a 33-year-old female who presents today for an evaluation of right knee pain. She reports initially she has intermittent pain, however worse over the last few months. She notices pain mostly at the anterior aspect of the knee, but when she bend her knee, she experiences pain at the posterior aspect. She denies numbness or tingling. She states that her feet turned inward when she was a child and was placed in feet cast. She was told that she probably have knee problems. She finds no relief with Tylenol. She denies numbness or tingling. [facility] Medical History Epidermal cyst GERD (gastroesophageal reflux disease) Surgical History History of surgery on wrist Family History Maternal Grandmother Asthma Maternal Grandfather Asthma Diabetes Prostate cancer Sister Asthma Father High cholesterol Cancer Paternal Grandfather Cancer Paternal Grandmother Non-Hodgkin lymphoma Paternal Uncle Pancreatic cancer Other Alcoholism Substance use disorder Social History Household Members: Spouse and Children Household Members Other:: Children x4 Housing: House 75 years or older and lives alone: No Alcohol intake: current Alcohol intake frequency: holidays/special occasions only Patient Tobacco Use Status: Never used Tobacco e-Cigarette/Vaping Use: Never Used service: No Current occupational status: employed Current occupation: [employer] – [place] Current occupational exposures/hazards: Yes Sexual orientation: Straight/Heterosexual Gender identity: Female Cognitive needs: No Hearing needs: No Vision needs: No Female Reproductive History Menstrual Age of Menarche: 11 Review of Systems Const All systems reviewed & are unremarkable except as noted in HPI and below Physical Exam Vital Signs: BMI result Body Mass Index 32.8 Const General: cooperative, healthy appearing, comfortable and no acute distress Orientation/consciousness: patient oriented x3 Neck Neck: Yes normal visual inspection and Yes no JVD Chest Chest palpation & inspection: normal inspection of the chest Resp Effort & Inspection: normal respiratory effort Auscultation: clear to auscultation bilaterally, crackles (no), rales (no), rhonchi (no) and wheezes (no) Cardio Jugular venous distension: no JVD Rate: regular rate Rhythm: regular rhythm Heart sounds: S1 normal heart sound present, S2 normal heart sound present, Murmur heart sound present (no) and Rub heart sound present (no) Neuro General: patient oriented x3 Extrem Other: Right knee: Skin intact, no erythema or joint effusion. Tenderness along the lateral retropatellar joint line. Full ROM with crepitus. Negative Trevor?s. No ligamentous laxity. NVI. General: Yes normal to inspection, Yes no pedal edema and Yes no calf tenderness Psych Appearance: grossly normal Mental Status: mental status grossly normal Speech and movement: Normal speech and movement present Results Reviewed Results Reviewed: Xrays were obtained in the office today and personally reviewed by me of the right knee show lateralization of the patella Assessment & Plan Assessment & Plan (1) Patellofemoral syndrome of right knee: Code(s): M22.2X1 - Patellofemoral disorders, right knee Category: Medical Plan We discussed options which include PT, NSAIDs and injections. The patient will defer on the injection today and proceed with PT and NSAIDs. If symptoms persist, she will contact me for an injection, otherwise, PRN. She was also fit for a genumed knee brace. Orders: Orders XR knee RT 3V Today M17.11 - Unilateral primary osteoarthritis, right knee PT Evaluation and Treatment Today M22.2X1 - Patellofemoral disorders, right knee Patient Instructions: Scribed for Kenroy Lowery PA-C, by Cassie Mobley medical assisting program director, on 05/25/2024 at 1:30 PM Kenroy CISNEROS PA-C, have personally reviewed and agree with the information entered by the scribe. Coding Level of Care Code Est Pt Level 3 (48065) Diagnoses Patellofemoral syndrome of right knee M22.2X1
[2024-05-25 14:03] VITALS: BMI 32.8
== END 2024-05-25 14:40 | disposition home or self-care (01) ==
PROVIDERS: PCP Nurse Practitioner Family; Visit Provider Physician Assistant
DX: M22.2X1 Patellofemoral disorders, right knee (principal)
CPT/HCPCS: 99213

== ENCOUNTER 2024-06-24 16:23 | Outpatient (AMB) | payer OTHER, SELFPAY ==
--- NOTE | 2024-06-24 16:40 | MHC.PC.OV ---
Intake Visit Reasons: Results and plan thyroid Allergies No Known Allergies Allergy (Verified 05/25/24 14:00) Medication List - Last Reconciled 06/24/24 by LEE Wharton cholecalciferol (vitamin D3) 50 mcg PO DAILY Tobacco use date assessed: 01/28/24 Dental Screening Dental Screen Date: 01/28/24 HPI HPI Comments History of Present Illness Details Telehealth follow up today to discuss fatigue and hair loss in the setting of an elevated parathyroid hormone and positive ANGELA. Since last office visit she feels more tired and is having more hair loss. The lumps in her neck that she saw me for initially are now resolved. She did have a thyroid ultrasound done, however unfortunately the parathyroids were not mentioned in the report. Be that as it may there were 2 thyroid nodules noted. Both of which were smaller than need for fine-needle biopsy. One of the nodules had ill-defined borders. See full report below. At this time discussed calling Radiology for a reread of the thyroid ultrasound. To see if the parathyroids were picked up at all. While waiting for a reread, we will check some labs to include a repeat parathyroid hormone, vitamin-D level along with TSH, free T4 and thyroid peroxidase antibodies to see if she has Renzo's. I will follow up with the patient once these results are available. Asked that she reach out to me sooner should anything else change. Laboratory Result Units Range Interpretation Provider Comments Phosphorus Level 3.0 mg/dL (2.7-4.5) Magnesium Level 2.2 mg/dL (1.6-2.6) Ferritin 16 ng/mL (10-122) Albumin 4.7 g/dL (3.5-5.0) Parathyroid Hormon e (Intact) 89.6 pg/mL (8.7-77.1) High PFSH Medical History Epidermal cyst GERD (gastroesophageal reflux disease) Surgical History History of surgery on wrist Family History Maternal Grandmother Asthma Maternal Grandfather Asthma Diabetes Prostate cancer Sister Asthma Father High cholesterol Cancer Paternal Grandfather Cancer Paternal Grandmother Non-Hodgkin lymphoma Paternal Uncle Pancreatic cancer Other Alcoholism Substance use disorder Social History Household Members: Spouse and Children Household Members Other:: Children x4 Housing: House 75 years or older and lives alone: No Alcohol intake: current Alcohol intake frequency: holidays/special occasions only Patient Tobacco Use Status: Never used Tobacco e-Cigarette/Vaping Use: Never Used service: No Current occupational status: employed [place] [employer] [place] occupational exposures/hazards: Yes Sexual orientation: Straight/Heterosexual Gender identity: Female Cognitive needs: No Hearing needs: No Vision needs: No Female Reproductive History Menstrual Age of Menarche: 11 Questionnaire Thrive Questionnaire Date Thrive assessed: 01/28/24 LOLA-7 AMB Questionnaire LOLA-7 Date LOLA - 7 assessed: 01/28/24 Source: Developed by Drs. Morris Caballero, Luci Millan, Erlin Lanier and colleagues, with an educational deonte from [employer]. Physical exam (Primary Care) Tobacco/Smoking Status: Tobacco use Status Tobacco use date assessed 01/28/24 05/19/24 07:52 Patient Tobacco Use Status Never used Tobacco 05/19/24 07:52 e-Cigarette/Vaping Use Never Used 05/19/24 07:52 Thrive Assessment: Date of Thrive Assessment Date Thrive assessed 01/28/24 05/19/24 07:52 Telehealth Telehealth Telehealth Platform: Telephone Location of provider rendering services: practice address Location of patient: address on file Patient Identification confirmed using: Name, : Yes Telehealth method: voice only Patient verbally consented to treatment: Yes Patient verbally consented to billing insurance company: Yes Patient informed of any privacy concerns related to visit: Yes Minutes spent on Phone/Video with Pt.: 13 Results Reviewed Results Reviewed: [address] [address] Ultrasound Report Signed Patient: Marly Millan MR#: [id number] : 1990 Acct:[id number] Age/Sex: 33 / F ADM Date: 05/23/24 Loc: HO. Attending Dr: Bri HOWARD Ordering Physician: Bri Betancourt Date of Service: 05/23/24 Procedure(s): US thyroid Accession Number(s): [id number] cc: Bri Betnacourt~ EXAMINATION: US THYROID CLINICAL INFORMATION: Other specified abnormal findings of blood chemistry. COMPARISON: Ultrasound soft tissue head/neck 05/19/2024. TECHNIQUE: Linear transducer grayscale and color Doppler examination with attention to the region of the thyroid. FINDINGS: SIZE: Measurements of the thyroid lobes and nodules are given in sagittal, anteroposterior and transverse dimensions respectively. Right Thyroid Lobe: 5.6 x 2.3 x 1.9 cm, volume 13.0 mL. Parenchyma: The gland echotexture is heterogeneous. Thyroid vascularity is normal. Left Thyroid Lobe: 4.9 x 1.7 x 1.6 cm, volume 6.7 mL. Parenchyma: The gland echotexture is heterogeneous. Thyroid vascularity is normal. Isthmus: 0.3 cm in maximum AP dimension. Estimated total number of nodules greater than or equal to 1 cm: 0. Licensed Mental Health Professional nodules are described as follows: 1. Location: Right mid. Size: 0.5 x 0.4 x 0.5 cm, volume 0.05 mL. Nodule characteristics: Composition: Mixed cystic and solid (1). Echogenicity: Hypoechoic (2). Shape: Not taller than wide (0). Margins: Ill-defined (0). Echogenic Foci: None (0). ACR TI-RADS total points: 3 ACR TI-RADS category: 3 2. Location: Left upper. Size: 0.2 x 0.1 x 0.2 cm, volume 0.002 mL. Nodule characteristics: Composition: Spongiform (0). ACR TI-RADS total points: 0 ACR TI-RADS category: 1 NODES: No lymphadenopathy is seen in the tissue surrounding the thyroid gland. US/US thyroid IMPRESSION: Diffusely heterogeneous thyroid gland. 0.5 cm right TR 3 thyroid nodule and 0.2 cm left TR 1 nodule. ACR TI-RADS RECOMMENDATION REFERENCE: Ultrasound-guided fine-needle aspiration, followup ultrasound, no further follow up. * TR1 (0 point) and TR2 (2 points): No FNA or follow up. * TR3 (3 points): FNA if more than or equal to 2.5 cm in maximum dimension, followup ultrasound in 1, 3 and 5 years if 1.5 to 2.4 cm in maximum dimension. * TR4 (4-6 points): FNA if more than or equal to 1.5 cm in maximum dimension, followup ultrasound in 1, 2, 3 and 5 years if 1 to 1.4 cm in maximum dimension. * TR5 (more than or equal to 7 points): FNA if more than or equal to 1 cm in maximum dimension, followup ultrasound every year for 5 years if 0.5 to 0.9 cm in maximum dimension. * TR3, TR4 or TR5 nodules that are below the size threshold for followup receive no follow up. Dictated By: Sherie Blevins MD Signed By: <Electronically signed by Sherie Blevins MD in OV> 06/06/24 1429 DD/ 0920 TD/TT: Rough Rib Grader: Assessment and Plan Assessment & Plan (1) Vitamin D deficiency: Comment: 01/2024 start Vitamin d3 2000IU QD. Recheck labs in 6 months. Code(s): E55.9 - Vitamin D deficiency, unspecified (2) Hair loss: Code(s): L65.9 - Nonscarring hair loss, unspecified (3) Elevated parathyroid hormone: Code(s): R79.89 - Other specified abnormal findings of blood chemistry (4) Thyroid nodule: Code(s): E04.1 - Nontoxic single thyroid nodule Orders: Orders Free T4 (Free Thyroxine) Today E04.1 - Nontoxic single thyroid nodule, E55.9 - Vitamin D deficiency, unspecified, L65.9 - Nonscarring hair loss, unspecified, R79.89 - Other specified abnormal findings of blood chemistry Thyroglobulin Antibodies Today E04.1 - Nontoxic single thyroid nodule, E55.9 - Vitamin D deficiency, unspecified, L65.9 - Nonscarring hair loss, unspecified, R79.89 - Other specified abnormal findings of blood chemistry Vitamin D 25-OH Total Today E04.1 - Nontoxic single thyroid nodule, E55.9 - Vitamin D deficiency, unspecified, L65.9 - Nonscarring hair loss, unspecified, R79.89 - Other specified abnormal findings of blood chemistry Thyroid Stimulating Hormone Today E04.1 - Nontoxic single thyroid nodule, E55.9 - Vitamin D deficiency, unspecified, L65.9 - Nonscarring hair loss, unspecified, R79.89 - Other specified abnormal findings of blood chemistry Thyroid Peroxidase Antibodies Today E04.1 - Nontoxic single thyroid nodule, E55.9 - Vitamin D deficiency, unspecified, L65.9 - Nonscarring hair loss, unspecified, R79.89 - Other specified abnormal findings of blood chemistry Parathyroid Hormone Intact Today E04.1 - Nontoxic single thyroid nodule, E55.9 - Vitamin D deficiency, unspecified, L65.9 - Nonscarring hair loss, unspecified, R79.89 - Other specified abnormal findings of blood chemistry Coding Level of Care Code Tele Est Pt Level 2 (61037) Diagnoses Vitamin D deficiency E55.9 Hair loss L65.9 Elevated parathyroid hormone R79.89 Thyroid nodule E04.1
== END 2024-06-24 17:20 | disposition home or self-care (01) ==
LOC: HO.HMGFM 16:23
PROVIDERS: PCP Nurse Practitioner Family; Visit Provider Nurse Practitioner Family
DX: E55.9 Vitamin D deficiency, unspecified (principal); L65.9 Nonscarring hair loss, unspecified; R79.89 Other specified abnormal findings of blood chemistry; E04.1 Nontoxic single thyroid nodule
CPT/HCPCS: 99212

== ENCOUNTER 2024-06-28 09:32 | Outpatient (REF) | payer OTHER, SELFPAY ==
[2024-06-28 11:05] LABS: Parathyroid Hormone Intact 84.4 pg/mL (8.7-77.1)
[2024-06-28 11:20] LABS: Thyroid Stimulating Hormone 1.92 uIU/mL (0.32-4.0)
[2024-06-29 09:53] LABS: Thyroglobulin Antibodies <1 IU/mL (< or = 1); Thyroid Peroxidase Antibodies <1 IU/mL (<9)
[2024-07-02 05:13] LABS: VITAMIN D (1,25 OH) D3 25 pg/mL; Vit D (1,25-Dihydroxy) Total 25 pg/mL (18-72); Vitamin D (1,25 OH) D2 <8 pg/mL
== END 2024-06-28 09:33 | disposition home or self-care (01) ==
LOC: HO.LAB 09:32
PROVIDERS: PCP Nurse Practitioner Family; Visit Provider Nurse Practitioner Family
DX: E55.9 Vitamin D deficiency, unspecified (principal); R79.89 Other specified abnormal findings of blood chemistry; L65.9 Nonscarring hair loss, unspecified; E04.1 Nontoxic single thyroid nodule
CPT/HCPCS: 36415; 82306; 82652; 83970; 84439; 84443; 86376; 86800

== ENCOUNTER → 2025-08-16 12:36 | Outpatient (RCR) | payer OTHER, SELFPAY ==
--- NOTE | 2024-06-14 14:21 | MHC.PT.EP ---
[facility] [place] Office [place] Office [place] Office [address] [phone] F: [phone] F: [phone] F: [phone] F: [phone] Physical Therapy Plan of Care Date of Evaluation: 06/14/24 Date of Surgery: Diagnosis: Patellofemoral syndrome of R knee Assessment: Pt is a 33 y/o F who is referred to PT for eval and treat of patellofemoral pain of R knee resulting in decreased tolerance or ability for ascending/descending stairs, walking long distances, squatting and kneeling secondary to decreased R knee ROM, decreased knee/hip strength, increased R quad tissue tension, TTP R popliteal fossa and gait abnormalities. Pt is motivated and is deemed an appropriate candidate to receive skilled PT services to address their physical impairments in order to improve their function. Frequency and Duration: The patient will be seen 2x/week for 3 weeks. Short Term Goals: Initiate home exercise program. Pt will report at most 3/10 pain; initial 6/10. Pt will increase R knee ROM flexion to 125; initial 116. Longterm Goals: Pt will be I with home exercise program. Pt will increase R knee ext strength by 1/2 grade; initial 4+/5. Pt will be able to ascend/descend stairs with at most 1-2/10 difficulty; initial 5/10. Pt will be able to squat with little to no difficulty; initial extreme difficulty. Treatment Plan: Modalities to reduce pain, spasms and effusion. Manual therapy to restore motion and function. Therapeutic exercise to improve strength and flexibility. Neuromuscular re-education for posture and balance. Therapeutic activities to return to functional activities of daily living. Electronically signed by: Hayden Gallegos PT. Please sign and return to therapist. Thank you for your referral.
== END | disposition home or self-care (01) ==
LOC: HO.PT 06-14 12:52
PROVIDERS: PCP Nurse Practitioner Family; Visit Provider Physician Assistant
DX: M22.2X1 Patellofemoral disorders, right knee (principal)
CPT/HCPCS: 97110; 97112; 97140; 97161; 97530